=== PATIENT | male | born 1965 | race Caucasian/White ===

== ENCOUNTER 2017-04-02 08:21 | Emergency (ER) | payer OTHER ==
[2017-04-02 08:29] VITALS: BP 137/87; PULSE 83; RESP 18; TEMP 97.5
--- NOTE | 2017-04-02 08:53 | ED ---
Lower Extremity Injury HPI - General Chief Complaint: Extremity Injury, Lower Stated Complaint: left knee injury Time Seen by Provider: 04/02/17 08:35 Source: patient, RN notes reviewed Mode of arrival: ambulatory Limitations: no limitations - History of Present Illness Initial Comments: 52-year-old male presents emergency Department chief complaint left knee pain. Patient states that he was at work and he had approximately 80 pound piece of metal fall down onto his knee. Skin across to his knee just superior to the patella. Patient states that he's had pain that still is present. He was advised he be evaluated today. Patient is able to ambulate with no difficulty. Patient denies any previous knee injuries. Denies any other injuries from this piece of metal falling. Patient had no laceration - Related Data Allergies Allergy/AdvReac Type Severity Reaction Status Date / Time naproxen Allergy Rash/Hives Verified 04/02/17 08:30 latex AdvReac Itching Verified 04/02/17 08:30 Review of Systems ROS Statement: Those systems with pertinent positive or pertinent negative responses have been documented in the HPI. ROS Other: All systems not noted in ROS Statement are negative. Past Medical History Past Medical History: Diabetes Mellitus, Hyperlipidemia, Hypertension History of Any Multi-Drug Resistant Organisms: None Reported Past Surgical History: Hernia Repair, Tonsillectomy Past Psychological History: Depression Smoking Status: Never smoker Past Alcohol Use History: None Reported Past Drug Use History: None Reported General Exam Limitations: no limitations General appearance: alert, in no apparent distress Neck exam: Present: normal inspection, full ROM. Absent: tenderness, meningismus, lymphadenopathy Respiratory exam: Present: normal lung sounds bilaterally. Absent: respiratory distress, wheezes, rales, rhonchi, stridor Cardiovascular Exam: Present: regular rate, normal rhythm, normal heart sounds. Absent: systolic murmur, diastolic murmur, rubs, gallop, clicks Extremities exam: Present: other (Left knee there is some swelling noted the suprapatellar region patient has full range of motion active and passive with minimal discomfort states that he feels some tightness with movement, pedal pulses are equal bilaterally there is no hip tenderness no ecchymosis noted) Skin exam: Present: warm, dry Course Vital Signs 04/02/17 08:25 Temperature 97.5 F L Pulse Rate 83 Respiratory 18 Rate Blood Pressure 137/87 O2 Sat by Pulse 99 Oximetry Medical Decision Making - Medical Decision Making 52-year-old male present emergency department for left knee injury. Patient has a left knee contusion. There is no acute fracture. Return parameters were discussed. Disposition Clinical Impression: Contusion of left knee Disposition: HOME SELF-CARE Condition: Stable Instructions: Contusion in Adults (ED) Additional Instructions: Please return to the Emergency Department if symptoms worsen or any other concerns. Referrals: Simone De La Cruz DO [Primary Care Provider] - 1-2 days Time of Disposition: 08:53
--- NOTE | 2017-04-02 08:54 | XR ---
EXAMINATION TYPE: XR knee complete LT DATE OF EXAM: 04/02/2017 CLINICAL HISTORY: pain TECHNIQUE: Three views of the left knee are obtained. COMPARISON: None. FINDINGS: There is no acute fracture/dislocation. The tri-compartment joint spaces appear within no rmal limits. Mild prepatellar soft tissue swelling. IMPRESSION: There is no acute fracture or dislocation ICD 10 NO FRACTURE, INITIAL EVALUATION
== END 2017-04-02 09:03 | disposition home or self-care (01) ==
LOC: EC 08:21
DX: S80.02XA Contusion of left knee, initial encounter (principal); Z88.6 Allergy status to analgesic agent; Z91.040 Latex allergy status; W20.8XXA Other cause of strike by thrown, projected or falling object, initial encounter; Y99.0 Civilian activity done for income or pay; Y92.69 Other specified industrial and construction area as the place of occurrence of the external cause
CPT/HCPCS: 99283